=== PATIENT | female | born 1960 | race Caucasian/White ===

== ENCOUNTER → 2023-01-02 10:34 | Outpatient (BNVA) | payer MEDICARE, SELFPAY | PROVIDERS: PCP Internal Medicine; Visit Provider Specialist | DX: M75.101 Unspecified rotator cuff tear or rupture of right shoulder, not specified as traumatic | CPT/HCPCS: 20610; 73030; 99204; J1100; J2795; J3301 ==

== ENCOUNTER → 2023-06-05 14:37 | Outpatient (BNVA) | payer MEDICARE, SELFPAY | PROVIDERS: PCP Internal Medicine; Visit Provider Specialist | DX: M12.811 Other specific arthropathies, not elsewhere classified, right shoulder | CPT/HCPCS: 73030; 99214 ==

== ENCOUNTER 2023-07-11 16:13 | Outpatient (CLI) | payer MEDICARE, SELFPAY ==
--- NOTE | 2023-07-11 16:45 | MR_ITS ---
WS: [id number] MRI RIGHT SHOULDER HISTORY: right shoulder pain COMPARISON: None available. TECHNIQUE: Multiplanar sequences of the shoulder joint are submitted. Significant motion artifact on several sequences. Marked AC joint arthritis encroaching upon the rotator cuff. Fluid in the subacromial and subdeltoid bursa. High riding humeral head. Mild downsloping of the acromion. Biceps tendon is not identified in the bicipital groove but there is motion artifact. I do believe the tendon is at least partially sub luxed. There is increased fluid within the biceps tendon sheath. No os acromion. Full-thickness tear of the distal supraspinatus tendon directly over the humeral head measuring at le ast 10 mm in length but suspect larger. The tendon is retracted to just medial to the superior carl l head. Mild fraying of the surface of the remaining tendon. There is a moderate supraspinatus atroph y. No muscle edema. Infraspinatus tendon appears intact. Severe narrowing of the coracohumeral interv al. Subscapularis tendon is being deformed and there is increased signal. Cannot confirm a tear but t here is at least advanced tendinopathy. Diffuse degenerative changes throughout the labrum. Subchondral cystic changes along the posterior la teral superior humeral head. MR/MR shoulder RT wo con* [id number] IMPRESSION: 1. Full-thickness tear distal supraspinatus tendon with retraction just medial to the superior humeral head. Not significantly changed since 08/17/2022. 2. Tendinopathy in the subscapularis tendon but no tear confirmed. There is ma rked narrowing of the coracohumeral interval with encroachment upon the tendon. 3. Marked AC joint arthritis. 4. Subluxed biceps tendon with tenosynovitis. 5. Moderate supraspinatus muscle atrophy. 6. There are diffuse degenerative changes involving the labrum. No focal tear. 7. Moderate glenohumeral joint arthritis and narrowing.
== END 2023-07-11 16:14 | disposition home or self-care (01) ==
LOC: RAD 16:13
PROVIDERS: PCP Internal Medicine; Visit Provider Specialist
DX: M25.511 Pain in right shoulder (principal); M75.121 Complete rotator cuff tear or rupture of right shoulder, not specified as traumatic; M65.811 Other synovitis and tenosynovitis, right shoulder; M19.011 Primary osteoarthritis, right shoulder
CPT/HCPCS: 73221

== ENCOUNTER 2023-07-21 14:55 | Emergency (ER) | payer MEDICARE, SELFPAY ==
--- NOTE | 2023-07-21 14:59 | XRR_ITS ---
PROCEDURE INFORMATION: Exam: XR Right Shoulder Exam date and time: 07/21/2023 3:26 PM Age: 63 years old Clinical indication: Patient HX: Right shoulder pain TECHNIQUE: Imaging protocol: Radiologic exam of the right shoulder. Views: 2 or more views. COMPARISON: 1. MR shoulder RT wo con* [id number] 07/11/2023 4:43 PM 2. CR XR shoulder RT min 2V* [id number] 06/05/2023 3:08 PM FINDINGS: Bones/joints: No fracture or other acute abnormality. The bones appear somewhat demineralized. Mild degenerative changes are seen in the AC and glenohumeral joints. Soft tissues: Normal. XR/XR shoulder RT min 2V* [id number] IMPRESSION: Nonacute findings. No significant change when compared to the prior shoulder x-ray.
[2023-07-21 15:02] VITALS: BP 141/80; PULSE 118; RESP 16; TEMP 36.4; O2SAT 97; BMI 29.2
--- NOTE | 2023-07-21 16:33 | ED_ITS ---
Documented by User: IRLANDA Louie 07/21/23 16:44 HPI - Extremity Problem General: Chief complaint: Extremity Injury, Upper Stated complaint: right shoulder pain Time Seen by Provider: 07/21/23 15:55 Source: patient Mode of arrival: ambulatory Limitations: no limitations History of Present Illness: Patient is a 63-year-old female presenting to the emergency department complaining of right shoulder pain chronically but worsening for the past day. Patient notes history of rotator cuff tear confirmed by an MRI, initially scheduled to receive surgery by Dr. Grier. She notes that the surgery was pushed back due to circumstantial reasons, and she has since been denied surgery at [facility] due to her smoking habits. She notes yesterday she had an MRI in her liver, and when she was strapped to the table this caused significant spasming of her right shoulder that have not ceased. She notes the pain has steadily increased and she has essentially no range of motion due to the pain at her right shoulder. She notes no improvement of the pain with alternating Motrin and Tylenol, and is tearful on examination. She states I have never had a pain as severe as this before. no other symptoms reported this time MD Complaint: joint pain Onset (ago): day(s) Pain Consistency: constant Location: right Quality: stabbing and constant Radiation: distal Relieving factors: nothing Exacerbating factors: range of motion and palpation Associated symptoms: Deny chest pain, fever(s) or rash Review of Systems General: Reports: 10 or more systems reviewed and unremarkable except in HPI and below Const: Denies: fever(s), chills or fatigue Eyes: Denies: change in vision ENMT: Denies: throat pain, ear or mastoid pain or nasal discharge Card: Denies: chest pain, palpitations, swelling of feet/ankles or lightheadedness Resp: Denies: dyspnea, productive cough or wheezing GI: Denies: abdominal pain, nausea, vomiting, diarrhea or constipation : Denies: flank pain, difficulty voiding, dysuria or urinary frequency Musc: Reports: joint pain (right shoulder); Denies: neck pain or back pain Skin/Breast: Denies: rash Neuro: Denies: headache(s), numbness in extremities or weakness in extremities Physical Exam Const: COMMON NORMALS: no acute distress, patient oriented x3 and no limitations GENERAL APPEARANCE: cooperative, well developed and anxious ORIENTATION/CONSCIOUSNESS: Yes awake, Yes oriented to person, Yes oriented to place and Yes oriented to time HENMT: COMMON NORMALS: normocephalic, atraumatic and hearing grossly normal bilaterally HEAD & SCALP: normocephalic and atraumatic Eye: COMMON NORMALS: Equal, round and reactive pupils present, EOMs intact bilaterally and conjunctivae normal CONJUNCTIVA: Yes conjunctivae normal PUPIL: Yes Equal, round and reactive pupils present Neck/C-Spine: COMMON NORMALS: full ROM, supple and no JVD Resp: COMMON NORMALS: normal respiratory effort, No retractions, No use of accessory muscles and clear to auscultation bilaterally AUSCULTATION: clear to auscultation bilaterally Cardio: COMMON NORMALS: no JVD, regular rate, regular rhythm, No clicks present (Cardio), No murmurs present (Cardio) and No rub (Cardio) RATE: regular rate RHYTHM: regular rhythm Back/Pelvis: COMMON NORMALS: thoracic and lumbar spine normal to inspection, no thoracic nor lumbar tenderness and thoraco-lumbar ROM normal Extremity: COMMON NORMALS: normal to inspection NARRATIVE EXTREMITY EXAM: Essentially no range of motion at the right shoulder, though patient is very intolerant to pain which limits the examination. No obvious signs of deformities, bruising, or other signs of trauma. Neuro: COMMON NORMALS: patient oriented x3, moves all extremities, no focal motor deficits and no sensory deficits noted SENSORIUM/ORIENTATION: Yes oriented to person, Yes oriented to place and Yes oriented to time Psych: COMMON NORMALS: mental status grossly normal and Normal thought process present MOOD & AFFECT: Yes tearful THOUGHT PROCESS: Normal thought process present Skin: COMMON NORMALS: no rashes or lesions noted GENERAL SKIN EXAM: no rashes or lesions noted Course Vital Signs: Vital signs: Vital Signs Temperature 97.6 F 07/21/23 17:05 Pulse Rate 123 H 07/21/23 17:05 Respiratory Rate 18 07/21/23 17:05 Blood Pressure 145/78 07/21/23 17:05 Pulse Oximetry 98 07/21/23 17:05 Oxygen Delivery Me thod Room Air 07/21/23 15:02 MDM - Extremity (Nontraumatic) Medical Decision Making Patient was seen for right shoulder pain status post MRI of her liver yesterday that caused a spasm in her right shoulder during procedure. Currently stating this is the worst pain she has ever had. She does note she has surgery scheduled for her right shoulder rotator cuff, though this was delayed due to circumstantial reasons. Now reporting something for pain. Vitals on arrival unremarkable, heart rate likely elevated due to her reported pain and anxiety. Has been taken Tylenol and ibuprofen at home, with no relief. Did give her shots of morphine, Norflex, and steroid here in the ED, and will send her home with some pain medications to take prior to following up with Ortho. I did put in a new referral so that she can get seen and have further intervention done, rather than waiting until a couple months from now for surgery, per the patient. All other questions and concerns addressed at this time. Lab Data Radiology Impressions Shoulder X-Ray 07/21/23 14:59 IMPRESSION: Nonacute findings. No significant change when compared to the prior shoulder x-ray. All radiology interpretation(s) finalized by discharge Discharge Plan Discharge Patient Disposition: Home Clinical Impression: Acute pain of right shoulder Condition: Stable Prescriptions: New hydrocodone-acetaminophen 7.5-325 mg tablet 1 tab PO Q8H PRN (Reason: pain) Qty: 10 0RF No Action pantoprazole 40 mg tablet,delayed release (DR/EC) 40 mg PO QDAY spironolactone 25 mg tablet 25 mg PO QDAY amlodipine 5 mg tablet 5 mg PO QDAY metoprolol succinate 100 mg tablet extended release 24 hr 100 mg PO QDAY lamotrigine 100 mg tablet 100 mg PO BID duloxetine 60 mg capsule,delayed release(DR/EC) 60 mg PO QDAY omeprazole 20 mg capsule,delayed release(DR/EC) 20 mg PO DAILY levothyroxine [Synthroid] 175 mcg tablet 175 mcg PO DAILY allopurinol 300 mg tablet 300 mg PO DAILY meloxicam 15 mg tablet 15 mg PO DAILY Qty: 30 1RF Discharge Orders: Discharge ED (Routine); Ordered 07/21/23 Ordered By: Richmond Crandall Referrals: Sarah Resendez MD [Primary Care Provider] - Discharge Diet: Usual diet Discharge Activity: Limit activity as instructed Patient Instructions: Opioid Safety, Pain Management Activity Restrictions/Additional Instructions: Pain medications as prescribed. Gentle range of motion exercises as tolerated. Follow-up with orthopedics as instructed. Otherwise, follow-up with primary care. Coding Level of Care Code ED Cement Side Laster for Chg Fwd Documented by User: Shamir Mcintosh DO 07/24/23 16:31 HPI - Extremity Problem General: Chief complaint: Extremity Injury, Upper Stated complaint: right shoulder pain Time Seen by Provider: 07/21/23 15:55 Course Vital Signs: Vital signs: Vital Signs Temperature 97.6 F 07/21/23 17:05 Pulse Rate 123 H 07/21/23 17:05 Respiratory Rate 18 07/21/23 17:05 Blood Pressure 145/78 07/21/23 17:05 Pulse Oximetry 98 07/21/23 17:05 Oxygen Delivery Me thod Room Air 07/21/23 15:02 MDM - Extremity (Nontraumatic) Medical Decision Making Patient was seen for right shoulder pain status post MRI of her liver yesterday that caused a spasm in her right shoulder during procedure. Currently stating this is the worst pain she has ever had. She does note she has surgery scheduled for her right shoulder rotator cuff, though this was delayed due to circumstantial reasons. Now reporting something for pain. Vitals on arrival unremarkable, heart rate likely elevated due to her reported pain and anxiety. Has been taken Tylenol and ibuprofen at home, with no relief. Did give her shots of morphine, Norflex, and steroid here in the ED, and will send her home with some pain medications to take prior to following up with Ortho. I did put in a new referral so that she can get seen and have further intervention done, rather than waiting until a couple months from now for surgery, per the patient. All other questions and concerns addressed at this time. Chart reviewed Lab Data Radiology Impressions Shoulder X-Ray 07/21/23 14:59 IMPRESSION: Nonacute findings. No significant change when compared to the prior shoulder x-ray. Discharge Plan Discharge Patient Disposition: Home Clinical Impression: Acute pain of right shoulder Condition: Stable Prescriptions: New hydrocodone-acetaminophen 7.5-325 mg tablet 1 tab PO Q8H PRN (Reason: pain) Qty: 10 0RF No Action pantoprazole 40 mg tablet,delayed release (DR/EC) 40 mg PO QDAY spironolactone 25 mg tablet 25 mg PO QDAY amlodipine 5 mg tablet 5 mg PO QDAY metoprolol succinate 100 mg tablet extended release 24 hr 100 mg PO QDAY lamotrigine 100 mg tablet 100 mg PO BID duloxetine 60 mg capsule,delayed release(DR/EC) 60 mg PO QDAY omeprazole 20 mg capsule,delayed release(DR/EC) 20 mg PO DAILY levothyroxine [Synthroid] 175 mcg tablet 175 mcg PO DAILY allopurinol 300 mg tablet 300 mg PO DAILY meloxicam 15 mg tablet 15 mg PO DAILY Qty: 30 1RF Discharge Orders: Discharge ED (Routine); Ordered 07/21/23 Ordered By: Richmond Crandall Referrals: Sarah eRsendez MD [Primary Care Provider] - Discharge Diet: Usual diet Discharge Activity: Limit activity as instructed Patient Instructions: Opioid Safety, Pain Management Activity Restrictions/Additional Instructions: Pain medications as prescribed. Gentle range of motion exercises as tolerated. Follow-up with orthopedics as instructed. Otherwise, follow-up with primary care. Coding Level of Care Code ED Cement Side Laster for Maria T Lindsey
[2023-07-21] MEDS: morphine 4 mg/mL SDV 1 mL IM (16:57)
[2023-07-21] MEDS: orphenadrine 30 mg/mL Inj 2 mL 60 MG IM (16:57)
[2023-07-21] MEDS: dexamethasone 10 mg/mL INJ 8 MG IM (16:58)
[2023-07-21 17:05] VITALS: BP 145/78; PULSE 123; RESP 18; TEMP 36.4; O2SAT 98
--- NOTE | 2023-07-22 09:09 | DCPLANNER ---
Sent followup request to ortho 07/22/23 @0989
== END 2023-07-21 17:06 | disposition home or self-care (01) ==
PROVIDERS: Emergency Provider Physician Assistant; PCP Internal Medicine
DX: M25.511 Pain in right shoulder (principal)
CPT/HCPCS: 73030; 96372; 99284; J1100; J2270; J2360

== ENCOUNTER 2023-07-26 06:00 | Outpatient (CLI) | payer MEDICARE, SELFPAY | END 2023-07-26 06:01 | disposition home or self-care (01) | LOC: SPT 07-27 11:10 | PROVIDERS: PCP Internal Medicine; Visit Provider Specialist | DX: Z46.89 Encounter for fitting and adjustment of other specified devices (principal); M12.811 Other specific arthropathies, not elsewhere classified, right shoulder | CPT/HCPCS: 97760; 99214; L3670 ==

== ENCOUNTER → 2023-10-30 13:58 | Outpatient (BNVA) | payer MEDICARE, SELFPAY | PROVIDERS: PCP Internal Medicine; Visit Provider Specialist | DX: M12.811 Other specific arthropathies, not elsewhere classified, right shoulder (principal) | CPT/HCPCS: 99214 ==

== ENCOUNTER 2023-11-24 13:55 | Outpatient (CLI) | payer MEDICARE, SELFPAY ==
[2023-11-24 14:26] LABS: Add Urine Microscopic? NO
[2023-11-24 14:27] LABS: Basophils # 0.1 10^3/uL (0.0-0.1); Basophils % 0.6 %; Eosinophils # 0.1 10^3/uL (0.0-0.8); Eosinophils % 1.1 %; Hematocrit 49.3 % (36-47); Lymphocytes # 2.5 10^3/uL (0.8-4.8); Lymphocytes % 25.9 %; Mean Corpuscular HGB Conc 34.3 g/dL (30-55); Mean Corpuscular Hemoglobin 32.3 pg (27-33); Mean Corpuscular Volume 94.1 fl (85-98); Mean Platelet Volume 11.4 fL (7.4-10.4); Monocytes # 0.7 10^3/uL (0.2-0.9); Monocytes % 7.2 %; Neutrophils # 6.35 10^3/uL (1.8-7.7); Neutrophils % 64.9 %; Nucleated Red Blood Cells % 0 %; Platelet Count 194 10^3/cmm (157-399); Red Blood Count 5.24 10^6/uL (3.85-5.65)
[2023-11-24 14:45] LABS: Alanine Aminotransferase 35 U/L (0-33); Albumin Level 4.1 g/dL (3.5-5.2); Alkaline Phosphatase 164 U/L (35-105); Anion Gap 17.1 (5-19); Aspartate Amino Transferase 39 U/L (0-32); Blood Urea Nitrogen 19 mg/dL (8-23); Calcium 9.6 mg/dL (8.5-10.5); Carbon Dioxide 25 mmol/L (22-29); Chloride 98 mmol/L (98-107); Globulin 4.8 g/dL (1.3-4.6); Glomerular Filtration Rate 62.8 mL/min (90-130); Glucose 155 mg/dL (65-115); Osmolality Calculated 287 mOsm/kg (285-295); Potassium 4.1 mmol/L (3.5-5.1); Sodium 136 mmol/L (136-145); Total Bilirubin 0.8 mg/dL (0.15-1.2); Total Protein 8.9 g/dL (6.6-8.7)
[2023-11-24 15:46] LABS: Bilirubin Urine Neg (Negative); Blood Urine Neg (Negative); Glucose Urine UA Norm (Normal); Ketones Urine Negative (Negative); Leukocyte Esterase Urine Negative (Negative); Nitrate Urine Negative (Negative); Protein Urine Neg (Negative); Specific Gravity, Urine 1.015 (1.005-1.030); Urine Appearance Clear (CLEAR); Urine Color Yellow (Yellow); Urobilinogen Urine 1 mg/dL (Negative); pH Urine 6.5 (5-7)
[2023-11-24 15:48] LABS: Charge for UA Resulting for Rev
== END 2023-11-24 13:56 | disposition home or self-care (01) ==
LOC: LAB 13:58
PROVIDERS: PCP Internal Medicine; Visit Provider Specialist
DX: Z01.818 Encounter for other preprocedural examination (principal)
CPT/HCPCS: 36415; 80053; 81003; 85025

== ENCOUNTER → 2023-12-13 12:27 | Outpatient (BNVA) | payer MEDICARE, SELFPAY | PROVIDERS: PCP Internal Medicine; Visit Provider Family Medicine | DX: Z01.818 Encounter for other preprocedural examination (principal); I49.8 Other specified cardiac arrhythmias | CPT/HCPCS: 81003; 93005 ==

== ENCOUNTER 2023-12-21 13:12 | Observation (INO) | payer MEDICARE, SELFPAY ==
[2023-12-21] VITALS (17 sets, daily range): BP systolic 95–139; BP diastolic 38–80; PULSE 61–97; RESP 16–20; TEMP 36.3–36.7; O2SAT 94–99; BMI 29.2
[2023-12-21] MEDS: sodium chloride 0.9% 1,000 ML 30 ML IV (08:28)
[2023-12-21] MEDS: acetaminophen 1,000 MG/100 ML PIGGYBACK 400 MG IV (08:28)
[2023-12-21] MEDS: gabapentin 300 mg Capsule PO (08:31)
[2023-12-21] MEDS: CELEcoxib 200 mg Capsule 400 MG PO (08:31)
--- NOTE | 2023-12-21 08:35 | P.HPUD_ITS ---
Surgery/Procedure H&P Update DATE OF PROCEDURE: December 21, 2023 DATE H&P PERFORMED: 12/13/23 H&P UPDATE INFORMATION: I have reviewed H&P completed within last 30 days, I have examined patient prior to procedure, No changes to prior documentation and H&P is in [facility] EMR on date indicated PLANNED PROCEDURE: Operation Date: 12/21/23 09:55 Proposed Procedures p Total Reverse Shoulder Arthroplasty(Right) - Ruthann Grier MD Related Problem List Diagnoses (1) Rotator cuff arthropathy of right shoulder:
--- NOTE | 2023-12-21 08:50 | SUR.PREOP ---
0845-scalene block was performed at bedside in OPS by Dr Murdock and RN. 20ml of 0.5% ropivicaine was used for procedure.
--- NOTE | 2023-12-21 08:51 | ANES.PREANE2 ---
Pre-Anesthetic Assessment Height/Weight: Height 1.63 m Weight 77.111 kg Temp Pulse Resp BP Pulse Ox O2 Del Method 97.8 F 67 17 129/80 94 Room Air 12/21/23 08:02 12/21/23 08:02 12/21/23 08:02 12/21/23 08:02 12/21/23 08:02 12/21/23 08:04 Operation Date: 12/21/23 09:55 Proposed Procedures p Total Reverse Shoulder Arthroplasty(Right) - Ruthann Grier MD Familial anesthetic complications: None Was Beta Meet taken within 24 hours: N/A Was Clonidine taken within 24 hours: N/A Last intake: Intake Last Liquid Date 12/20/23 Last Liquid Time 23:58 Last Solid Date 12/20/23 Last Solid Time 20:00 Social No alcohol and No tobacco quit smoking last month Exam alert, oriented x 3, clear to auscultation bilaterally and regular rate & rhythm CV/HEM Hypertension GI Gastroesophageal Reflux Disease Metabolic Diabetes Mellitus Anesthetic Plan ASA status: 3 Anesthesia: General and Regional (specify below) Risk of > 500 ml blood loss (7ml/kg in children): No Medications/Allergies Home Medications Medication Instructions Recorded Confirmed Last Taken Type allopurinol 300 mg tablet 300 mg PO DAILY 01/02/23 12/20/23 12/20/23 History amlodipine 5 mg tablet 5 mg PO QDAY 01/02/23 12/20/23 12/20/23 History duloxetine 60 mg capsule,delayed 60 mg PO QDAY 01/02/23 12/20/23 12/20/23 History release lamotrigine 100 mg tablet 100 mg PO BID 01/02/23 12/20/23 12/20/23 History levothyroxine 175 mcg tablet 175 mcg PO DAILY 01/02/23 12/21/23 12/21/23 History (Synthroid) metoprolol succinate 100 mg 100 mg PO QDAY 01/02/23 12/21/23 12/21/23 History tablet,extended release 24 hr pantoprazole 40 mg tablet,delayed 40 mg PO QDAY 01/02/23 12/21/23 12/21/23 History release spironolactone 25 mg tablet 25 mg PO QDAY 01/02/23 12/20/23 12/20/23 History shoulder immobilizer, right #1 ea 07/26/23 10/30/23 Unknown Rx glipizide 2.5 mg tablet, extended 2.5 mg PO DAILY 12/13/23 12/20/23 12/19/23 History release 24 hr Allergies Allergy/AdvReac Type Severity Reaction Status Date / Time adhesive tape Allergy blister Verified 12/21/23 07:58 lisinopril Allergy anaphlaxsis Verified 12/21/23 07:58 nitrofurantoin Allergy rash Verified 12/21/23 07:58 [From Macrodantin] Current Medications Generic Name Dose Route Start Last Admin Trade Name Freq PRN Reason Stop Dose Admin Sodium Chloride 1,000 mls @ 30 mls/hr 12/21/23 08:00 12/21/23 08:28 Sodium Chloride 0.9% IV 12/22/23 07:59 30 mls/hr .Q24H BRIAN Administration PFSH Anesthesia Family History Brother Diabetes mellitus type 1 Social History Smoking and tobacco/nicotine status: never used tobacco/nicotine Data Anesthesia Cardiac Studies: No Data to Display
--- NOTE | 2023-12-21 08:54 | ANES.PROC ---
Anesthesia Procedures Procedure/Date: 12/21/23 Nerve Block ^: Nerve Block 1: Main Anesthesia: general anesthesia Time Out Performed: Yes Consent: requested by attending/covering physician, from patient, from other, risks and benefits reviewed and patient agrees to proceed Nerve block location: interscalene (R) Anesthesia monitors applied: pulse oximetry, EKG, BP cuff and oxygen Nerve block position: semi sitting Anesthetic Used: ropivicaine 0.5% (20 ml) and with decadron (3 mg) Ultrasound used to: recognize landmarks, visualize and ID brachial plexus, in supraclavicular region and visualize and ID interscalene groove Nerve Stimulator Used?: No Interscalene/Femoral BLK: 2 stimuplex 22 g needle used for position and inplane approach, visualize local anesthetic spread and no vascular puncture identified Injection: neg aspiration of heme Patient Tolerated Procedure: well Complications: none
--- NOTE | 2023-12-21 08:57 | P.HPUD_ITS ---
Surgery/Procedure H&P Update DATE OF PROCEDURE: December 21, 2023 DATE H&P PERFORMED: 12/13/23 H&P UPDATE INFORMATION: I have reviewed H&P completed within last 30 days, I have examined patient prior to procedure, No changes to prior documentation and H&P is in [facility] EMR on date indicated PLANNED PROCEDURE: Operation Date: 12/21/23 09:55 Proposed Procedures p Total Reverse Shoulder Arthroplasty(Right) - Ruthann Grier MD Related Problem List Diagnoses (1) Rotator cuff arthropathy of right shoulder:
--- NOTE | 2023-12-21 09:22 | XR_ITS ---
WS: [id number] XR shoulder RT 1V [id number] REASON FOR EXAM: OR PICS FINDINGS: Total reversed arthroplasty of the right shoulder. The prosthetic components are intact and in proper position and alignment. No bony abnormality. XR/XR shoulder RT 1V [id number] IMPRESSION: Total reverse right shoulder arthroplasty without abnormality.
[2023-12-21] MEDS: ceFAZolin 2,000 mg SDV 2000 MG IV (09:37)
[2023-12-21] MEDS: tranexamic acid 1,000 mg/10mL SDV 1000 MG IV (10:15)
[2023-12-21 10:38] LABS: Glucose Point of Care 153 mg/dL (70-110)
[2023-12-21] MEDS: ceFAZolin 1,000 mg SDV 1000 MG IRRIGATION (10:49)
[2023-12-21] MEDS: vancomycin 1,000 MG SDV 1000 MG XX (10:50)
--- NOTE | 2023-12-21 12:32 | XR_ITS ---
WS: [id number] XR shoulder RT 1V [id number] REASON FOR EXAM: Reverse right shoulder arthroplasty. FINDINGS: Total reverse right shoulder arthroplasty. Components of the prosthesis are intact and in proper position and alignment unchanged to the intraop erative exam. XR/XR shoulder RT 1V [id number] IMPRESSION: Total reverse right shoulder arthroplasty without abnormality.
--- NOTE | 2023-12-21 13:15 | ANE.PACU2 ---
Inpatient post-anesthesia follow up: Airway intact: Yes Vital signs: Temperature 98.1 F Pulse Rate 78 Respiratory Rate 18 Blood Pressure 100/66 Pulse Oximetry 95 Oxygen Delivery Me thod Nasal Cannula Oxygen Flow Rate 3 Fraction of Inspir ed Oxygen Hydration adequate: Yes Nausea and vomiting: No Pain level: 1 Mental status: Baseline
--- NOTE | 2023-12-21 13:45 | PC.NURSE ---
Arrives to unit at 1333. Luther removed per nurse driven protocol. Tolerated well.
--- NOTE | 2023-12-21 14:14 | PM.OP ---
Operative Report Date of procedure: December 21, 2023 Pre-op diagnosis: Right shoulder rotator cuff arthropathy with severe osteoarthritic change Post-op diagnosis: Right shoulder rotator cuff arthropathy with severe osteoarthritic change Post-op findings: Severe degenerative osteoarthritis with absence of rotator cuff and near complete tear of the biceps tendon intra-articularly Procedure done: Right reverse shoulder arthroplasty with biceps tenotomy and tenodesis Implants: The Tornier perform reverse shoulder system with a size 25 mm +3 offset reversed augmented glenoid lateralized baseplate, a size 36 mm cannulated standard glenosphere, reverse, a size 2+ humeral stem short, and a retentive reversed insert +0 mm thickness Specimens removed/disposition: Humeral head, disposed of Pathology: None sent Surgeon: Ruthann Grier MD Machined Parts Metal Sprayer: Stacy Cordon Machined Parts Metal Sprayer: Who services were needed for positioning, retraction, and completion of the surgical procedure Anesthesia: General (Intubated, ASA 3) Estimated blood loss (mL): 80 IV fluids (mL): 1,100 Urine output (mL): 100 Complications: None Findings: As noted above Condition: stable Disposition: PACU (Then admit under observation status for postoperative rehabilitation) Brief History: This 63-year-old woman presented to the clinic for discussion regarding total shoulder arthroplasty. Her pain was constantly a 5 of 10. It was worsening over time. She had locking and catching. She has to manually move her right shoulder. Discussion was undertaken with the patient while in the office regarding risks and complications of the surgical procedure. MRI confirmed that there was rotator cuff pathology along with the osteoarthritis within the glenohumeral and acromioclavicular joints. While in the office, consents were signed and questions were answered. Procedure: The patient was brought to the operating theater and placed in a beachchair positioner following administration of general anesthesia intubated, ASA 3, as well as the preoperative regional block.? When she was positioned and confirmation was made that we could place the shoulder in appropriate positions to accomplish the surgical procedure, the right upper extremity was prepped and draped in usual fashion utilizing DuraPrep.? We confirmed we could visualize appropriately with fluoroscopy as well prior to prepping.? Following the DuraPrep, the patient's arm was draped free but so that we could use the arm perez to secure positions of the arm and this allowed us full access to the shoulder.? Preoperatively, the patient's arm had been marked and I subsequently initialed this.? During our surgical pause, we confirmed the site and side of surgery and this henok was visualized.? Additionally, the clavicle as well as the acromioclavicular joint and the coracoid were marked to allow appropriate incision placement.? Preoperative antibiotic, ancef 2 g, and TXA 1 g was also given.? Surgical pause was performed prior to incision. Incision then began between the acromioclavicular joint and coracoid and continued along the deltopectoral groove.? This was a standard deltopectoral incision.? Dissection continued through skin and soft tissues using a scalpel,and hemostasis was obtained using electrocautery.? The deltopectoral fascia was incised and care was taken to protect the cephalic vein, but this vein had to be ligated secondary to a small corollary which could not be stop from bleeding.? Soft tissues were then elevated from the subscapularis tendon.? Retractors were placed.? The coracoid was palpated as well as the musculocutaneous nerve and these were retracted as well as the deltoid on the opposite side.? The leash of vessels at the inferior aspect of the subscapularis was cauterized.? Tag sutures were placed 2 cm medial to the biceps tendon and further medial and an incision was made through the capsule and subscapularis tendon between the 2 lines of sutures.? Incision was continued transversely both superiorly through the rotator interval and inferiorly to allow access to the shoulder joint.? Biceps tenotomy was accomplished with tenodesis to follow. The humeral head was manipulated and dislocated. Soft tissues were elevated off of the neck of the humerus following osteophyte removal.? In this way we were able to mobilize the humerus.? Osteotomy was accomplished of the humeral head, and we were then able to move the humeral head out of the way to visualize the glenoid.? A proximal humeral protector was placed in position. Soft tissues were resected from around glenoid.? Cautery was used to do this so that we could fully visualize for placement of the components.? Care was taken to protect the musculocutaneous and also the axillary nerves during this process.? The glenoid was found to be osteopenic, and there was significant deformity to the glenoid with a significant dish appearance.? The humerus was also noted to be quite osteopenic. The glenoid was visualized.? The guidewire was placed into the glenoid.? This pin was placed until a bicortical hole was obtained.? Care was taken to assure that we were bicortical.? This was measured and the screw measured a size 35 mm.? Prior to removal of the guidewire, reaming was accomplished.? We reamed until we had good cortical bleeding bone.? Following this the guide pin was removed and a depth gauge was utilized to assure that this was the appropriate length screw to truly be bicortical.? Palpation with the depth gauge demonstrated that we were indeed bicortical.? Finding this to be so and having reamed to good bleeding bone, the Tornier perform reverse augment lateralized baseplate glenoid was placed in position. It was a 25 mm with +3 offset. 4 screws were then placed into this baseplate. There were 2 compression screws superiorly and inferiorly and 2 screws in an anterior posterior position. We had good purchase with the screws, and therefore, the standard glenosphere for the Tornier perform reverse shoulder was placed in position. This was a 36 mm glenosphere. It was found to seat nicely. The screw was then placed through the glenosphere into the baseplate. Attention was directed to the humerus to prepare the humerus.? As noted above, the humerus had been dislocated and humeral head osteotomy was accomplished. The protector was removed from the proximal aspect of the humerus. Guidewire was placed in appropriate position to allow reaming of the proximal aspect of the humerus. Once this was reamed, the guidewire was removed. We then placed the broach into position and impacted it based upon the proximal size of the humerus. The chosen size based on the proximal aspect of the humerus was a size 2. When this was impacted into position, it was noted to fit somewhat loosely, and therefore we increased to the short size 2+. Trial reduction was then accomplished utilizing the Tornier retentive reverse insert with a thickness of +0 mm. We also trialed the +3 mm, but this made the shoulder too tight and we were unable to reduce it. Therefore, we had the glenosphere as noted above with the +0 mm reverse insert. With this construct, we had excellent range of motion.? We were able to abduct to 90?, and we had free range of motion below this with excellent internal and external rotation.? We had no obvious impingement.? Distraction on the arm demonstrated approximately less than a millimeter of distraction.? Therefore, these were the chosen components.? All trial components were removed including the broach. The size 2+ humeral stem was impacted into position uneventfully. Following this, the retentive reverse insert with a thickness of +0 mm was placed and impacted into position appropriately. The construct was reduced.? Once again, range of motion was performed, we had excellent stability with no evidence of dislocation.? Therefore, attention was directed to closure.? The shoulder was irrigated copiously with normal saline with Betadine and subsequently this was irrigated out with normal saline.? Closure was then accomplished utilizing 0 Ethibond combined with 0 Vicryl to close anterior rotator cuff tissues.?The deltopectoral groove was then evaluated.? Soft tissues were closed in this area with 0 Vicryl.? We then placed vancomycin powder and Surgiflo.? The subcutaneous tissues were closed using 2-0 Monocryl.? The skin was closed with a running 3-0 Monocryl.? This was followed by Steri-Strips and Dermabond pernio.? Sterile dressing was placed consisting of a Silverlon dressing.? The patient was placed in a slingshot style sling and was returned to recovery room in satisfactory condition where she will be discharged to the floor for postoperative rehabilitation and pain management.? There were no specimens and no complications.? X-rays were obtained intraoperatively and demonstrated both appropriate position and reduction of the components as well as excellent fit of the humeral canal. Additional images were obtained in the PACU. Related Problem List Diagnoses (1) Rotator cuff arthropathy of right shoulder:
[2023-12-21] MEDS: duloxetine 60 mg Capsule PO (14:56)
[2023-12-21] MEDS: oxyCODONE 5 mg IR Tab/Cap PO ×2 (14:56→20:05)
[2023-12-21] MEDS: acetaminophen 500 mg Tablet 1000 MG PO (16:11)
--- NOTE | 2023-12-21 16:23 | PC.NURSE ---
IV OUT. 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
[2023-12-21] MEDS: lamoTRIgine 100 mg Tablet PO (17:37)
[2023-12-21] MEDS: ceFAZolin 2,000 mg SDV 2000 MG IVP (17:38)
[2023-12-21] MEDS: tranexamic acid 1,000 MG/100 ML PREMIX 600 MG IV (17:38)
[2023-12-21] MEDS: CELEcoxib 200 mg Capsule PO (17:38)
[2023-12-22 00:19] VITALS: BP 133/72; PULSE 76; RESP 17; TEMP 36.6; O2SAT 93
[2023-12-22 00:25] VITALS: RESP 18
[2023-12-22] MEDS: oxyCODONE 5 mg IR Tab/Cap PO ×4 (00:25→14:15)
[2023-12-22] MEDS: acetaminophen 500 mg Tablet 1000 MG PO ×2 (00:26→08:01)
[2023-12-22] MEDS: ceFAZolin 2,000 mg SDV 2000 MG IVP ×2 (00:54→08:00)
[2023-12-22 04:41] VITALS: BP 114/65; PULSE 71; RESP 17; TEMP 36.7; O2SAT 95
[2023-12-22 05:49] VITALS: RESP 16
[2023-12-22 08:00] VITALS: BP 121/76; PULSE 80; RESP 17; TEMP 36.6
[2023-12-22] MEDS: metoprolol succinate ER (24 HR) 100 mg Tablet PO (08:01)
[2023-12-22] MEDS: TRAMadol 50 mg Tablet PO (08:01)
[2023-12-22] MEDS: pantoprazole DR 40 mg Tablet PO (08:01)
[2023-12-22] MEDS: CELEcoxib 200 mg Capsule PO (08:01)
[2023-12-22] MEDS: amlodipine 5 mg Tablet PO (08:01)
[2023-12-22] MEDS: lamoTRIgine 100 mg Tablet PO (08:01)
[2023-12-22] MEDS: duloxetine 60 mg Capsule PO (08:01)
[2023-12-22] MEDS: spironolactone 25 mg Tablet PO (08:02)
--- NOTE | 2023-12-22 10:16 | PC.CHAP ---
Pastoral Care Encounter/Spiritual Assessment Type of Contact [] Declined surgical tech visit [] Patient/Family/Request visit [] Outpatient visit [] Follow-up visit [] Physician referral [] Code/Alert [x] Routine visit [] Staff referral [] Actively dying [] Patient sleeping [] Family support [] [] Out of room [] Palliative care [] [] Receiving care in room [] Pre-surgical visit [] Trauma [] Long length of stay [] ICU visit [] Other: Relational/Emotional Strength [x] Patient feels connected with others/family/visitors/staff [] Distress [] Loneliness/isolation [] Abandonment Spirituality of Patient [x] Person of Marcella [] Attends Anabaptist of their Marcella [] Believes in Prayer [] Reads Bible or Latter Day materials [] There are Spiritual issues to be addressed Clinical Social Worker Interventions [x] Prayer [] Active listening [] Non-anxious presence [] Spiritual/emotional support [] Crisis/trauma care [] Spiritual counseling [] Bereavement support [] Provided bereavement packet [] Provided Bible/devotional materials [] Provided toy/stuffed animal, coloring book to patient or family member [] Provided Communion [] Anointing/[place] [] Salvation [] Completed spiritual assessment [] Other: Impact on Illness or Injury [] Angry [] Fearful [] Anxious [] Often cries [] Exhaustion [] Unable to work [] Unable to attend orthodox [] Unable to walk/stand [] Unable to read [] Unable to drive [] Unable to eat/drink [] Unable to sleep [] Unable to be with family [] Patient intubated [] Other: Summary Time spent with patient 10 min
--- NOTE | 2023-12-22 10:28 | PC.CHAP ---
Pastoral Care Encounter/Spiritual Assessment Type of Contact [] Declined forming machine upkeep mechanic visit [] Patient/Family/Request visit [] Outpatient visit [] Follow-up visit [] Physician referral [] Code/Alert [x] Routine visit [] Staff referral [] Actively dying [] Patient sleeping [] Family support [] [] Out of room [] Palliative care [] [] Receiving care in room [] Pre-surgical visit [] Trauma [] Long length of stay [] ICU visit [] Other: Relational/Emotional Strength [] Patient feels connected with others/family/visitors/staff [] Distress [] Loneliness/isolation [] Abandonment Spirituality of Patient [x] Person of Marcella [] Attends Sikhism of their Marcella [] Believes in Prayer [] Reads Bible or Pentecostalism materials [] There are Spiritual issues to be addressed Peer Specialist Interventions [x] Prayer [] Active listening [] Non-anxious presence [] Spiritual/emotional support [] Crisis/trauma care [] Spiritual counseling [] Bereavement support [] Provided bereavement packet [] Provided Bible/devotional materials [] Provided toy/stuffed animal, coloring book to patient or family member [] Provided Communion [] Anointing/[place] [] Salvation [] Completed spiritual assessment [] Other: Impact on Illness or Injury [] Angry [] Fearful [] Anxious [] Often cries [] Exhaustion [] Unable to work [] Unable to attend hindu [] Unable to walk/stand [] Unable to read [] Unable to drive [] Unable to eat/drink [] Unable to sleep [] Unable to be with family [] Patient intubated [] Other: Summary Time spent with patient 10 min
--- NOTE | 2023-12-22 13:21 | PC.NURSE ---
Pt request pharmacy change to [facility], so she has medication for the trip home. Chart updated to reflect change.
--- NOTE | 2023-12-22 14:10 | P.DS_ITS ---
Discharge Providers Date of Admission: 12/21/23 13:12 Date of Discharge: December 22, 2023 Attending Provider at Admission: Ruthann Grier MD Attending Provider at Discharge: Ruthann Grier MD Primary Care Provider: Sarah Resendez MD Diagnoses at Discharge Discharge Diagnosis (1) Rotator cuff arthropathy of right shoulder: Status: Acute (2) Status post reverse arthroplasty of right shoulder: Status: Acute Permanent problem details: Date of procedure: December 21, 2023 Diagnosis: Right shoulder rotator cuff arthropathy with severe osteoarthritic change Procedure done: Right reverse shoulder arthroplasty with biceps tenotomy and tenodesis Implants: The Tornier perform reverse shoulder system with a size 25 mm +3 offset reversed augmented glenoid lateralized baseplate, a size 36 mm cannulated standard glenosphere, reverse, a size 2+ humeral stem short, and a retentive rev ersed insert +0 mm thickness Reason for Visit Reason for Visit: M12.811 Brief History: This 63-year-old woman presented to the clinic for discussion regarding total shoulder arthroplasty. Her pain was constantly a 5 of 10. It was worsening over time. She had locking and catching. She has to manually move her right shoulder. Discussion was undertaken with the patient while in the office regarding risks and complications of the surgical procedure. MRI confirmed that there was rotator cuff pathology along with the osteoarthritis within the glenohumeral and acromioclavicular joints. While in the office, consents were signed and questions were answered. Hospital Course Hospital Course This 63-year-old woman was admitted under observation following reverse shoulder arthroplasty. The procedure was well-tolerated, and there were no complications postoperatively. When the patient was seen for rounds, she was up in the [place] walking independently. Plans are made for her discharge to home. She is given outpatient instructions for there is reverse shoulder arthroplasty rehabilitation protocol. She will have home PT work with her. Physical Exam Const: COMMON NORMALS: no acute distress, average body habitus, patient oriented x3 and alert GENERAL APPEARANCE: cooperative and comfortable ORIENTATION/CONSCIOUSNESS: Yes awake HENMT: COMMON NORMALS: normocephalic and atraumatic HEAD & SCALP: normocephalic and atraumatic Eye: GENERAL EYE: appearance normal, both eyes and all related structures Chest: COMMONS NORMALS: normal inspection of the chest Resp: COMMON NORMALS: normal respiratory effort EFFORT & INSPECTION: Yes able to speak in complete sentences and Yes symmetric chest movement Extremity: RIGHT UPPER EXTREMITY: Yes shoulder joint (Dressing is dry and intact) Right shoulder: Yes Right shoulder joint ROM exam (Not evaluated.) and Yes Right shoulder joint neurovascular exam (Intact distally) Neuro: COMMON NORMALS: patient oriented x3 SENSORIUM/ORIENTATION: Yes alert Psych: COMMON NORMALS: mental status grossly normal APPEARANCE: Yes grossly normal ATTITUDE: Yes calm and Yes engaged ATTENTION/CONCENTRATION: Yes attention grossly intact Skin: COMMON NORMALS: no rashes or lesions noted GENERAL SKIN EXAM: no rashes or lesions noted Urinary Catheter Management: Luther: Cath Placed During This Visit: yes Urinary Catheter Date of Insertion: 12/21/23 Urinary Catheter Time of Insertion: 09:50 Discharge Data Studies Completed and Pending Completed Studies During Hospitalization Category Date Time Status XR shoulder RT 1V 50068 Routine Exams 12/21/23 09:22 Completed XR shoulder RT 1V 27108 Urgent Exams 12/21/23 12:32 Completed Radiology Impressions Shoulder X-Ray 12/21/23 12:32 IMPRESSION: Total reverse right shoulder arthroplasty without abnormality. Laboratory Results POC Glucose 153 mg/dL (70-110) H 12/21/23 08:15 Vitals Last Vital Signs Temp 98 F 12/22/23 08:00 Pulse 80 12/22/23 08:00 Resp 17 12/22/23 08:00 BP 121/76 12/22/23 08:00 Pulse Ox 95 12/22/23 04:41 O2 Del Method Room Air 12/22/23 08:00 O2 Flow Rate 2 12/21/23 15:55 Discharge Plan Discharge Patient Disposition: Home Health Service Condition: Stable Prescriptions: New celecoxib 200 mg Capsule 200 mg PO 1XD 30 Days Qty: 30 0RF acetaminophen 500 mg Tablet 1,000 mg PO Q8H 15 Days Qty: 90 0RF aspirin 325 mg Tablet,Delayed Release (Dr/Ec) 325 mg PO DAILY 15 Days Qty: 15 0RF oxycodone 5 mg Tablet 2.5 - 5 mg PO Q4H PRN (Reason: Moderate To Severe Pain) 7 Days Qty: 30 0RF Continued pantoprazole 40 mg tablet,delayed release (DR/EC) 40 mg PO QDAY spironolactone 25 mg tablet 25 mg PO QDAY amlodipine 5 mg tablet 5 mg PO QDAY metoprolol succinate 100 mg tablet extended release 24 hr 100 mg PO QDAY lamotrigine 100 mg tablet 100 mg PO BID duloxetine 60 mg capsule,delayed release(DR/EC) 60 mg PO QDAY levothyroxine [Synthroid] 175 mcg tablet 175 mcg PO DAILY allopurinol 300 mg tablet 300 mg PO DAILY glipizide 2.5 mg tablet extended release 24hr 2.5 mg PO DAILY (DME) shoulder immobilizer, right See Rx Instructions .Route .MEDSUPPLY Qty: 1 0RF Rx Instructions: As directed Discharge Orders: Discharge Order (Routine); Ordered 12/22/23 Ordered By: Ruthann Mendoza Ambulatory Orders: Occupational Therapy Eval and Treat Outpatient (Order) Timeframe: 3 Days Facility: [facility] - Location: Occupational Therapy Ordered By: Ruthann Grier Physical Therapy Eval and Treat Outpatient (Order) Timeframe: 3 Days Facility: [facility] - Location: Physical Therapy Ordered By: Ruthann Grier Referrals: [facility] [Other] (Order has been faxed for therapy to be started. If you have not heard from them by Monday. Please call to f/up and schedule your appointment. ) Ruthann Grier MD [Physician] - 01/03/24 11:00 am Discharge Diet: Advance as tolerated and Usual diet Discharge Activity: Limit activity as instructed and As per PT/OT instructions Patient Instructions: Acute Wound Care (DC), Opioid Safety, Post Anesthesia Care Activity Restrictions/Additional Instructions: Per total shoulder protocol. Ice to right shoulder. Wear slingshot style sling until you are seen in the office. No active shoulder range of motion. No lifting. Discharge Attestations Time Spent in Discharge Care*: greater than 30 min Specific Discharge Activities: educating patient, documenting/other paperwork and evaluating patient/reviewing data Quality Metrics Clinical Quality Measures [ No reported AMI, CVA or VTE this stay] Coding Level of Care Code Acute Code for Chg Fwd Diagnoses Rotator cuff arthropathy of right shoulder M12.811 Status post reverse arthroplasty of right shoulder Z96.611
[2023-12-22 14:31] VITALS: BP 121/76; PULSE 80; RESP 17; TEMP 36.6
== END 2023-12-22 14:31 | disposition home health service (06) ==
LOC: MEDSURG 13:13
PROVIDERS: Admitting Provider Specialist; PCP Internal Medicine; Visit Provider Specialist
PROC: (CPT 23472; principal; 2023-12-21 09:25)
DX: M19.011 Primary osteoarthritis, right shoulder (principal); Z87.891 Personal history of nicotine dependence; I10 Essential (primary) hypertension; K21.9 Gastro-esophageal reflux disease without esophagitis; E11.9 Type 2 diabetes mellitus without complications
CPT/HCPCS: 23430; 23472; 36416; 51702; 73020; 76000; 82962; 97161; 97165; C1713; C1776; G0378; J0131; J0690; J1100; J2371; J2405; J2704; J2795; J3010; J3370; J7030

== ENCOUNTER → 2024-01-03 10:28 | Outpatient (BNVA) | payer MEDICARE, SELFPAY | PROVIDERS: PCP Internal Medicine; Visit Provider Specialist | DX: Z96.611 Presence of right artificial shoulder joint (principal); M12.811 Other specific arthropathies, not elsewhere classified, right shoulder; Z48.89 Encounter for other specified surgical aftercare | CPT/HCPCS: 73030; 99024 ==